=== PATIENT | male | born 1970 | race Caucasian/White ===

== ENCOUNTER → 2021-06-11 | Outpatient (CLI) | payer BC, OTHER | LOC: HYPER 15:17 | PROVIDERS: ATTEND Emergency Medicine | DX: T81.31XA Disruption of external operation (surgical) wound, not elsewhere classified, initial encounter (principal); T81.44XA Sepsis following a procedure, initial encounter; L97.822 Non-pressure chronic ulcer of other part of left lower leg with fat layer exposed; M00.9 Pyogenic arthritis, unspecified; R65.20 Severe sepsis without septic shock; I10 Essential (primary) hypertension; F32.9 Major depressive disorder, single episode, unspecified; Z92.29 Personal history of other drug therapy; Z79.899 Other long term (current) drug therapy; Y83.8 Other surgical procedures as the cause of abnormal reaction of the patient, or of later complication, without mention of misadventure at the time of the procedure; Y92.238 Other place in hospital as the place of occurrence of the external cause ==

== ENCOUNTER → 2021-06-23 | Outpatient (CLI) | payer BC, OTHER | LOC: HYPER 12:42 | PROVIDERS: ATTEND Emergency Medicine | DX: T81.31XD Disruption of external operation (surgical) wound, not elsewhere classified, subsequent encounter (principal); T81.44XD Sepsis following a procedure, subsequent encounter; L97.822 Non-pressure chronic ulcer of other part of left lower leg with fat layer exposed; L84 Corns and callosities; M00.9 Pyogenic arthritis, unspecified; R65.20 Severe sepsis without septic shock; I10 Essential (primary) hypertension; F32.9 Major depressive disorder, single episode, unspecified; Z92.29 Personal history of other drug therapy; Y83.8 Other surgical procedures as the cause of abnormal reaction of the patient, or of later complication, without mention of misadventure at the time of the procedure ==